=== PATIENT | female | born 1990 | race African-American/Black ===

== ENCOUNTER 2017-09-30 01:13 | Emergency (ER) | payer SELFPAY ==
[~2017-09-30] VITALS: Ht 160 cm; Wt 61.2 kg
--- NOTE | 2017-09-30 01:30 | NUR ---
PT TO ER BED 10. BIBSELF C/O "FEELING WEIRD" AFTER TAKING [employer] EDIBLE A FEW HOURS AGO. PT PLACED IN GOWN AND ON FLOORMAN. VSS/RESP EVEN UNLABORED/NAD NOTED/SKIN WARM AND DRY/AFEBRILE/DENIES N-V-D/AOX4. AWAITING MD PERAZA
[2017-09-30] MEDS ORDERED: ONDANSETRON 4 MG TAB.RAPDIS ONE ×2 (01:57→01:59)
[2017-09-30] MEDS ORDERED: ONDANSETRON 4 MG TAB.RAPDIS SL ONE (02:00)
--- NOTE | 2017-09-30 02:38 | NUR ---
LAB AT BEDSIDE TO DRAW.
[2017-09-30 03:03] LABS: CALCIUM, SERUM 8.9 mg/dL (8.5-10.1); CREATININE 0.9 mg/dL (0.6-1.3); POTASSIUM 3.4 mmol/L (3.5-5.1)
--- NOTE | 2017-09-30 03:18 | NUR ---
XRAY AT BEDSIDE.
--- NOTE | 2017-09-30 04:09 | NUR ---
Patient discharged to home in stable condition. Written and verbal after care instructions given. Patient verbalizes understanding of instruction. Patient ambulatory with a steady gait.
[2017-09-30 04:11] VITALS: BP 124/81
== END 2017-09-30 04:12 | disposition home or self-care (01) ==
LOC: ER 01:18
DX: F10.129 Alcohol abuse with intoxication, unspecified (principal); T40.7X5A Adverse effect of cannabis (derivatives), initial encounter; Y92.89 Other specified places as the place of occurrence of the external cause
CPT/HCPCS: 36415; 71045-TC; 80048-TC; 84484-TC; A4606; Q0162; Z7610